=== PATIENT | female | born 1995 | race Caucasian/White ===

== ENCOUNTER 2020-12-20 17:30 | Emergency (ER) | payer OTHER ==
[2020-12-20] MEDS ORDERED: LODINE CAP 300300 MG PO (19:23)
== END 2020-12-20 19:35 | disposition home or self-care (01) ==
LOC: ER1 17:30
DX: S93.401A Sprain of unspecified ligament of right ankle, initial encounter (principal); X58.XXXA Exposure to other specified factors, initial encounter; Y93.02 Activity, running; Y92.828 Other wilderness area as the place of occurrence of the external cause
CPT/HCPCS: 73610; 99283